=== PATIENT | male | born 1945 | race African-American/Black ===

== ENCOUNTER 2018-10-04 11:27 | Emergency (ER) | payer MEDICARE, MEDICAID ==
[~2018-10-04] VITALS: Ht 193 cm; Wt 67.0 kg
[~2018-10-04 11:27] MED LIST: ATEN-42
[2018-10-04] MEDS ORDERED: SODIUM CHLORIDE 0.9% 1,000 ML IV ONE (12:22)
[2018-10-04 13:09] LABS: BASOPHILS % 0.7 % (0.0-2.0); EOSINOPHILS % 0.3 % (0.0-5.0); HEMATOCRIT. 34.2 % (42.0-52.0); HEMOGLOBIN. 11.3 g/dL (14.0-18.0); LYMPHOCYTES % 12.8 % (20.0-50.0); MEAN CORPUSCULAR HEMOGLOBIN 29.3 pg (28.0-32.0); MEAN CORPUSCULAR VOLUME 88.5 fL (80.0-94.0); MEAN PLATELET VOLUME 8.3 fl (7.4-10.4); MONOCYTES % 8.8 % (2.0-8.0); NEUTROPHILS % 77.4 % (40.0-76.0); PLATELET 215 x1000/uL (130-400); RED BLOOD CELL COUNT 3.87 mill/uL (4.7-6.1); RED CELL DISTRIBUTION WIDTH 15.5 % (11.6-14.6)
[2018-10-04 13:14] LABS: CHLORIDE 104 mEq/L (98-107)
[2018-10-04 16:46] VITALS: BP 135/82
== END 2018-10-04 16:47 | disposition home or self-care (01) ==
LOC: ER 11:27
DX: R55 Syncope and collapse (principal); I11.9 Hypertensive heart disease without heart failure; Z85.118 Personal history of other malignant neoplasm of bronchus and lung
CPT/HCPCS: 36415; 70450; 71045; 80053; 85025; 93005; 99284; J7030